=== PATIENT | female | born 1945 | race Caucasian/White ===

== ENCOUNTER 2017-12-30 07:46 | Inpatient (IN) | payer MEDICARE, OTHER ==
[~2017-12-30] VITALS: Ht 175.3 cm; Wt 72.2 kg
[~2017-12-30 07:46] MED LIST: APIX5TAB PO; ASPI-515 PO; ATOR40TA78 PO; BENZ-17 PO; LEVE500T53 PO; LORA10TA72 PO; ROSU10TA PO; SOTA120T14 PO; SOTA80TA PO; SOTA80TA18 PO; VALS160T3 PO
[2017-12-30] MEDS ORDERED: SODIUM CHLORIDE 0.9% 1,000 ML IV ONE (08:16)
[2017-12-30] MEDS ORDERED: DILTIAZEM 5 MG/ML, 5ML IVPush ONE (08:16)
[2017-12-30] MEDS ORDERED: SODIUM CHLORIDE FLUSH 10ML SYR IVF ONE (08:30)
[2017-12-30] MEDS ORDERED: ASPIRIN 81 MG TABLET CHEW PO ONE (08:30)
[2017-12-30] MEDS ORDERED: ASPIRIN 81 MG TABLET CHEW ONE (08:32)
[2017-12-30 09:06] LABS: BASOPHILS # (AUTO) 0.03 x10^3/uL (0-0.1); BASOPHILS % (AUTO) 1 % (0-1); EOSINOPHILS # (AUTO) 0.35 x10^3/uL (0-0.4); EOSINOPHILS % (AUTO) 6 % (1-7); LYMPHOCYTES # (AUTO) 2.54 x10^3/uL (1-3.4); LYMPHOCYTES % (AUTO) 45 % (22-44); MD NO; MEAN CORPUSCULAR HEMOGLOBIN 31.4 pg (27.0-34.8); MEAN CORPUSCULAR HGB CONC 33.8 g/dL (32.4-35.8); MEAN CORPUSCULAR VOLUME 92.9 fL (80-100); MEAN PLATELET VOLUME 9.2 fL (7.4-10.4); MONOCYTES # (AUTO) 0.47 x10^3/uL (0.2-0.8); MONOCYTES % (AUTO) 8 % (2-9); NEUTROPHILS # (AUTO) 2.24 x10^3/uL (1.8-6.8); NEUTROPHILS % (AUTO) 40 % (42-75); PLATELET COUNT 175 x10^3/uL (130-400); RED BLOOD COUNT 4.28 x10^6/uL (3.82-5.3); RED CELL DISTRIBUTION WIDTH 14.2 % (9.6-15.2)
[2017-12-30 09:13] LABS: ALBUMIN 3.6 g/dL (3.4-5.0); ANION GAP 8 mmol/L (5-15); CALCIUM 8.9 mg/dL (8.5-10.1); CHLORIDE 108 mmol/L (98-107)
[2017-12-30 09:17] LABS: TROPONIN I < 0.015 ng/mL (0.000-0.045)
[2017-12-30] MEDS ORDERED: HEPARIN 25,000 UNITS/500ML PMX 500 ML IV PRN (11:00)
[2017-12-30] MEDS ORDERED: ENALAPRILAT 1.25 MG/ML, 2ML IVPush PRN (11:00)
[2017-12-30] MEDS ORDERED: HEPARIN 5,000 UNITS/ML, 1ML IV PRN (11:00)
[2017-12-30] MEDS ORDERED: ONDANSETRON 2MG/ML, 2ML IVPush PRN (11:00)
[2017-12-30] MEDS ORDERED: LABETALOL 5MG/ML, 20ML IVPush PRN (11:00)
[2017-12-30] MEDS ORDERED: HEPARIN 5,000 UNITS/ML, 1ML IV ONE (11:00)
[2017-12-30] MEDS ORDERED: ONDANSETRON ODT 4 MG PO PRN (11:00)
[2017-12-30] MEDS ORDERED: BISACODYL 10 MG SUPP PR PRN (11:00)
[2017-12-30] MEDS ORDERED: ACETAMINOPHEN 325 MG TABLET PO PRN (11:00)
[2017-12-30] MEDS ORDERED: DOCUSATE 100 MG CAPSULE PO PRN (11:00)
[2017-12-30] MEDS ORDERED: HEPARIN 25,000 UNITS/500ML PMX 500 ML ONE (11:03)
[2017-12-30] MEDS ORDERED: HEPARIN 5,000 UNITS/ML, 1ML ONE (11:03)
[2017-12-30 11:36] VITALS: BP 128/78
[2017-12-30 12:13] LABS: THYROID STIMULATING HORMONE 1.49 mIU/L (0.358-3.740)
[2017-12-30] MEDS ORDERED: SOTALOL 120MG TABLET PO ONE (12:30)
[2017-12-30] MEDS: LEVETIRACETAM 500 MG TABLET PO SCH ×2 (12:35→20:50)
[2017-12-30 15:39] LABS: TROPONIN I 0.086 ng/mL (0.000-0.045)
[2017-12-30 20:05] VITALS: BP 113/76
[2017-12-30] MEDS: SOTALOL 120MG TABLET PO SCH (20:49)
[2017-12-30] MEDS ORDERED: SIMVASTATIN 40 MG TABLET PO SCH (21:00)
[2017-12-30 21:23] LABS: TROPONIN I 0.115 ng/mL (0.000-0.045)
[2017-12-31 01:20] VITALS: BP 97/67
[2017-12-31] MEDS: SOTALOL 120MG TABLET PO SCH ×2 (04:17→18:00)
[2017-12-31 05:55] LABS: BASOPHILS # (AUTO) 0.03 x10^3/uL (0-0.1); BASOPHILS % (AUTO) 1 % (0-1); EOSINOPHILS # (AUTO) 0.22 x10^3/uL (0-0.4); EOSINOPHILS % (AUTO) 4 % (1-7); LYMPHOCYTES # (AUTO) 2.54 x10^3/uL (1-3.4); LYMPHOCYTES % (AUTO) 48 % (22-44); MD NO; MEAN CORPUSCULAR HEMOGLOBIN 31.8 pg (27.0-34.8); MEAN CORPUSCULAR HGB CONC 33.9 g/dL (32.4-35.8); MEAN CORPUSCULAR VOLUME 93.6 fL (80-100); MEAN PLATELET VOLUME 9.2 fL (7.4-10.4); MONOCYTES # (AUTO) 0.48 x10^3/uL (0.2-0.8); MONOCYTES % (AUTO) 9 % (2-9); NEUTROPHILS # (AUTO) 2.01 x10^3/uL (1.8-6.8); NEUTROPHILS % (AUTO) 38 % (42-75); PLATELET COUNT 154 x10^3/uL (130-400); RED BLOOD COUNT 4.06 x10^6/uL (3.82-5.3); RED CELL DISTRIBUTION WIDTH 14.4 % (9.6-15.2)
[2017-12-31 06:00] LABS: INTERNATIONAL NORMALIZED RATIO 1.04 (0.93-1.1); PROTHROMBIN TIME 10.7 Seconds (9.6-11.5)
[2017-12-31 06:06] LABS: ANION GAP 7 mmol/L (5-15); CALCIUM 8.7 mg/dL (8.5-10.1); CHLORIDE 113 mmol/L (98-107)
[2017-12-31 06:10] LABS: TROPONIN I 0.128 ng/mL (0.000-0.045)
[2017-12-31 06:11] LABS: ALANINE AMINOTRANSFERASE 25 U/L (12-78); ALKALINE PHOSPHATASE 63 U/L (45-117); BILIRUBIN,TOTAL 0.5 mg/dL (0.2-1.0); CHOL/HDL RATIO 3.1; CHOLESTEROL, TOTAL 149 mg/dL (140-239); CREATININE 0.79 mg/dL (0.55-1.02); HDL CHOL % 32 % (28-40); HDL CHOLESTEROL (DIRECT) 48 mg/dL (40-60); LDL CHOLESTEROL,CALCULATED 88 mg/dL (54-169); LDL/HDL RATIO 1.8 (0.5-3.0); TOTAL PROTEIN 6.2 g/dL (6.4-8.2); TRIGLYCERIDES 66 mg/dL (50-200); VLDL CHOLESTEROL 13 mg/dL (0-25)
[2017-12-31 06:35] VITALS: BP 106/73
[2017-12-31] MEDS: LEVETIRACETAM 500 MG TABLET PO SCH ×2 (08:53→21:26)
[2017-12-31] MEDS: SENNA/DOCUSATE TABLET PO SCH (08:53)
[2017-12-31] MEDS: LORATADINE 10 MG TABLET PO SCH (08:55)
[2017-12-31] MEDS ORDERED: VALSARTAN 160 MG TABLET PO SCH (09:00)
[2017-12-31] MEDS: APIXABAN 5 MG TABLET PO SCH ×2 (11:54→21:26)
[2017-12-31 12:40] VITALS: BP 120/75
[2017-12-31 18:37] VITALS: BP 127/81
[2017-12-31] MEDS: ROSUVASTATIN 10MG HOMEMEDPO SCH (21:25)
[2018-01-01 01:11] VITALS: BP 142/82
[2018-01-01 07:07] VITALS: BP 154/88
[2018-01-01] MEDS: LEVETIRACETAM 500 MG TABLET PO SCH ×2 (08:12→21:22)
[2018-01-01] MEDS: SOTALOL 120MG TABLET PO SCH ×2 (08:12→18:28)
[2018-01-01] MEDS: APIXABAN 5 MG TABLET PO SCH ×2 (08:12→21:23)
[2018-01-01] MEDS: SENNA/DOCUSATE TABLET PO SCH (08:13)
[2018-01-01] MEDS: VALSARTAN 80 MG TABLET PO SCH (08:13)
[2018-01-01] MEDS: LORATADINE 10 MG TABLET PO SCH (08:17)
[2018-01-01] MEDS ORDERED: REGADENOSON 0.4 MG/5 ML SYRINGE ONE (08:42)
[2018-01-01 14:20] VITALS: BP 134/78
[2018-01-01 18:59] VITALS: BP 160/84
[2018-01-01] MEDS: ROSUVASTATIN 10MG HOMEMEDPO SCH (21:00)
[2018-01-02 00:50] VITALS: BP 135/82
[2018-01-02 06:24] VITALS: BP 163/87
[2018-01-02] MEDS: SOTALOL 120MG TABLET PO SCH (06:27)
[2018-01-02 06:54] VITALS: BP 146/86
[2018-01-02] MEDS: APIXABAN 5 MG TABLET PO SCH (08:48)
[2018-01-02] MEDS: VALSARTAN 80 MG TABLET PO SCH (08:48)
[2018-01-02] MEDS: LEVETIRACETAM 500 MG TABLET PO SCH (08:49)
[2018-01-02] MEDS: SENNA/DOCUSATE TABLET PO SCH (08:49)
[2018-01-02] MEDS: LORATADINE 10 MG TABLET PO SCH (08:53)
[2018-01-02] MEDS ORDERED: VALS80TA30 PO (12:38)
[2018-01-02] MEDS ORDERED: APIX5TAB PO (12:38)
== END 2018-01-02 14:26 | disposition home or self-care (01) | DRG 309 ==
LOC: ED 10:08 → EDIP 10:26 → 5SO 11:21 → DCLOUNGE 01-02 14:17
PROVIDERS: ADMIT Hospitalist; ATTEND Family Medicine
DX: I48.0 Paroxysmal atrial fibrillation (principal); D68.69 Other thrombophilia; I95.9 Hypotension, unspecified; E78.5 Hyperlipidemia, unspecified; I44.4 Left anterior fascicular block; R73.9 Hyperglycemia, unspecified; R00.1 Bradycardia, unspecified; I08.3 Combined rheumatic disorders of mitral, aortic and tricuspid valves; I10 Essential (primary) hypertension; Z86.61 Personal history of infections of the central nervous system; Z88.0 Allergy status to penicillin; Z88.6 Allergy status to analgesic agent; Z88.8 Allergy status to other drugs, medicaments and biological substances; Z85.820 Personal history of malignant melanoma of skin; Z82.49 Family history of ischemic heart disease and other diseases of the circulatory system
CPT/HCPCS: 36415; 71045; 78452; 80048; 80053; 80061; 82040; 83735; 83880; 84100; 84443; 84484; 85025; 85520; 85610; 93005; 93017; 93306; 96361; 96374; 96375; 99291; G0378; J1644; J2785; A9502; C9898; J7030